=== PATIENT | male | born 1930 | race African-American/Black ===

== ENCOUNTER 2017-02-28 15:13 | Inpatient (IN) ==
[2017-02-28 16:04] LABS: Basophils % 0.2 % (0.0-0.8); Eosinophils % 0.1 % (0.00-10.9); Hematocrit 42.5 VOL% (42.0-52.0); Immature Granulocytes % 0.3 %; Immature Granulocytes Absolute 0.04 #; Lymphocytes # 1.1 10*3/uL (1.4-4.0); Lymphocytes % 7.9 % (21.2-54.2); Mean Corpuscular HGB Conc 30.6 GM/DL (32-36); Mean Corpuscular Hemoglobin 27 PG (27-34); Mean Corpuscular Volume 88.2 FL (87-102); Mean Platelet Volume 10.6 FL (9.6-12.0); Monocytes # 1.3 10*3/uL (0.11-0.8); Neutrophils # 11.9 10*3/uL (1.4-7.4); Neutrophils % 82.5 % (38.7-73.9); Platelet Count 332 T/CUMM (130-400); Red Blood Count 4.82 MC/CUMM (3.8-5.5); Red Cell Distribution Width 14.5 % (9.3-17.3); White Blood Count 14.4 T/CUMM (4-12)
[2017-02-28 16:19] LABS: Alanine Aminotransferase 19 U/L (16-61); Albumin 2.7 G/DL (3.4-5.0); Alkaline Phosphatase 74 U/L (45-117); Aspartate Amino Transferase 15 U/L (0-37); Blood Urea Nitrogen 17 MG/DL (7-18); Calcium 8.4 MG/DL (8.5-10.1); Glucose 172 MG/DL (74-106); Magnesium 2.2 MG/DL (1.8-2.4); Osmolality,Calculated 284.4 MOS/KG (273-304); Potassium 3.8 MMOL/L (3.5-5.1); Sodium 140 MMOL/L (136-145); Total Protein 7.2 G/DL (6.4-8.3); Troponin I Only < 0.015 NG/ML (0.00-0.045)
--- NOTE | 2017-02-28 16:42 | XRay Report ---
Portable chest Date: 02/28/2017 Clinical history: Shortness of breath Comparison: None Technique: Portable AP sitting chest Findings: The heart is small and compressed by the over expanded lungs. Pleural thickening at the lung apices with probable chronic scarring. Atelectasis at the lung bases. Calcified granulomata/nodes. Unremarkable mediastinum with degenerative changes. 9 mm osseous finding at the level of the left sixth/seventh rib laterally which has sclerotic margins and central radiolucency. 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 9 mm cystic finding with sclerotic margins at the level of the left sixth/seventh rib laterally. PROCEDURE INTERPRETED AT [facility] DEPARTMENT OF RADIOLOGY Final Report Signed by: Dr. Cira Menjivar
--- NOTE | 2017-02-28 17:17 | Emergency Department Note ---
Alysha Salinas Hilary, am scribing for, and in the presence of, Esvin Hong MD 15:59. Hal Salinas Phillip K, MD, personally performed the services described in this documentation, ascribed by Dora Encarnacion in my presence, and it is both accurate and complete 712 . Arrival - Arrival Chief Complaint: Non-Specific ED Nursing Triage Note: pt was sent from [place] for dehydration. weight loss Mode of Arrival: Stretcher Limitations: No Limitations Source: Patient, RN Notes Reviewed Time Seen by Provider: 02/28/17 15:33 - History of Present Illness HPI Narrative: Pt is a 86 y/o male transferred to the ED from the [place] for dehydration and weight loss. His C/O is an overall feeling of weakness onset about a week ago. Patient confirms he has lost about 10lbs in 3 weeks, cough with yellow discharge but denies N/V/D, fever or pain. Patient lives alone next to his sister and his brother lives about a mile away. He says he quit drinking in 2012 and smokes occasionally but "doesn't inhale". Pt has a PMHx of etoh abuse, substance abuse, COPD, and Dyslipidemia. No other complaints or problems stated in ED. Onset (ago): week(s) Allergies/Adverse Reactions: Allergies Allergy/AdvReac Type Severity Reaction Status Date / Time No Known Allergies Allergy Unverified 02/28/17 15:22 Review of System - Review of System 12 point system: reviewed and no additional remarkable complaints except as stated - Review of System Constitutional: Present: weakness, weight loss (lost 10lbs in 3 weeks). Absent : fever Respiratory: Present: cough (yellow discharge) Gastrointestinal: Absent: abdominal pain, nausea, vomiting, diarrhea Musculoskeletal: Absent: back pain, leg pain, neck pain Medical,Surgical,& Family Hx - Medical History Psychological: History of: Psychiatric Problems (etoh abuse,substance abuse) Endocrine: History of: Dyslipidemia Respiratory: History of: COPD - Social History Smoking Status: Smoker, status unknown Frequency of Alcohol Use: None Type of Drug Use: None Exam Vital Signs: Vital Signs Temperature 98.5 F 02/28/17 15:15 Pulse Rate 83 02/28/17 15:15 Respiratory Rate 18 02/28/17 15:31 Blood Pressure 124/68 02/28/17 15:15 O2 Sat by Pulse Oximetry 99 02/28/17 15:15 - General General appearance: alert, in no apparent distress - Head Head exam: Present: atraumatic, normocephalic - Eye Eye exam: Present: normal appearance, PERRL, EOMI - ENT ENT exam: Present: mucous membranes moist, TM's normal bilaterally. Absent: mucous membranes dry - Neck Neck exam: Present: full ROM, trachea midline. Absent: tenderness - Chest Chest inspection: Present: symmetric chest wall rise. Absent: tenderness - Respiratory Respiratory exam: Present: rales (left base) - Cardiovascular Cardiovascular exam: Present: regular rate (AFIB), irregular rhythm - Abdominal Exam Abdominal exam: Present: soft, normal bowel sounds. Absent: distention, tenderness - Extremities Exam Extremities exam: Present: full ROM. Absent: tenderness, pedal edema, calf tenderness - Back Exam Back exam: Present: full ROM. Absent: tenderness - Neurological Exam Neurological exam: Present: alert, oriented X3, CN II-XII intact. Absent: motor sensory deficit - Psychiatric Psychiatric exam: Present: normal affect, normal mood - Skin Skin exam: Present: warm, dry, intact, normal color. Absent: rash Results - Labs CBC & BMP: 02/28/17 15:25 02/28/17 15:25 Lab Results: I have reviewed the patients labs Labs: Laboratory Tests 02/28/17 02/28/17 15:25 15:25 WBC 14.4 H RBC 4.82 Hgb 13.0 L Hct 42.5 MCHC 30.6 L Neut % (Auto) 82.5 H Lymph % (Auto) 7.9 L Neut # (Auto) 11.9 H Lymph # (Auto) 1.1 L Rich # (Auto) 1.3 H Carbon Dioxide 33 H BUN/Creatinine Ratio 21.00 H Glucose 172 H Calcium 8.4 L Albumin 2.7 L Globulin 4.5 H Albumin/Globulin Ratio 0.6 L - EKG EKG results: interpreted by IJEOMA, sinus rhythm (old septal NE) - Diagnostic Findings Procedure: Chest x-ray: report reviewed by me (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 9mm cystic finding with sclerotic margins at the level of the left sixth/seventh rib laterally. ) Disposition Clinical Impression: Unexplained weight loss, Hypoalbuminemia, Failure to thrive Case discussed with: patient Disposition: Still a Patient Additional Instructions: Admit for further workup.
--- NOTE | 2017-02-28 17:31 | EKG Report ---
Stationary ECG Study [facility] ER Test Date: 02/28/2017 5:29:12 PM Pat Name: CRISTINA LOVELL Department: Room: Gender: M Cook Night: : 1930 Requested by: Esvin Elder Order Number: [id number] Reading MD: JOESPH GUAJARDO Intervals [place] Rate: 76 P: 85 DE: 199 QRS: -11 QRSD: 64 T: 84 QT: 369 QTc: 400 Interpretive Statements SINUS RHYTHM LEFT ATRIAL ENLARGEMENT PROBABLE SEPTAL MYOCARDIAL INFARCTION, OF INDETERMINATE AGE LATERAL MYOCARDIAL INFARCTION, OF INDETERMINATE AGE Electronically Signed On 02-28-17 17:41:05 CDT by OJESPH GUAJARDO [email or web address]
[2017-02-28 17:56] LABS: Apearance,Urine Slightly Hazy (Clear); Bilirubin,Urine Negative (Negative); Blood, Urine Negative (Negative); Glucose,Urine (UA) Negative (Negative); Ketones,Urine Negative (Negative); Mucus,Urine Moderate /LPF (Occasional); Nitrite,Urine Negative (Negative); Protein,Urine 30 MG/DL; RBC,Urine 1 /HPF (0-4); Squamous Epithelial Cell,Urine Occasional /HPF (0-10); Urine Color Yellow (Yellow); Urine Specific Gravity 1.019 (1.001-1.035); WBC,Urine 4 /HPF (0-6)
[2017-02-28] MEDS ORDERED: SODIUM CHLORIDE 0.9% 1,000 ML IV STA (18:32)
--- NOTE | 2017-02-28 18:40 | Hospitalist History & Physical ---
Assessment and Plan (1) Dysphagia Status: Acute Assessment and plan: consult GI Current Visit: Yes (2) Unexplained weight loss Status: Acute Assessment and plan: marijuana for appetite Current Visit: Yes (3) COPD (chronic obstructive pulmonary disease) Status: Acute Assessment and plan: chronic and stable does not want nicotine patch Current Visit: Yes (4) Leukocytosis Status: Acute Assessment and plan: ua negative, cxr no infiltrate, blood cx pending, repeat cbc in am Current Visit: Yes History of Present Illness Chief complaint: weight loss History of present illness: Mr. Damon is a 86 year old male with a history of no medical problems and sees the [place] doctor as needed presented to the emergency room with dizziness and lightheadedness and recent weight loss. Patient reports a 10 pound weight loss in the last 3 weeks. He says he just does not have an appetite. He also says he has difficulty swallowing pills and has to crush them. He has never had an EGD. I gave them him the option of a PEG tube but he declined at this time. He would prefer just getting a pill for appetite stimulation. Patient denies any nausea vomiting diarrhea or constipation issues. He used to smoke and drink but quit drinking and smokes occasionally. Patient's family is healthy. We discussed his CODE STATUS and initially he wanted to be a full code. When I explained to him what that would entail he requests DNR status. Allergies Allergy/AdvReac Type Severity Reaction Status Date / Time No Known Allergies Allergy Unverified 02/28/17 15:22 Medical,Surgical,& Family Hx - Medical History Psychological: History of: Psychiatric Problems (etoh abuse,substance abuse) Endocrine: History of: Dyslipidemia Respiratory: History of: COPD - Surgical History Abdominal Surgeries: Surgical HX of: Hernia Repair - Family History Family History: Reports;: Family Hypertension - Social History Smoking Status: Light tobacco smoker Frequency of Alcohol Use: None (Quit drinking years ago) Type of Drug Use: None Marital Status: Single Lives With:: Alone Functional capacity: independent ambulation - Constitutional Constitutional: Present: fatigue, weakness, weight loss. Absent: anorexia, frequent falls, headache(s) - EENT Eyes: Absent: blurry vision, diplopia Ears: Absent: decreased hearing, ear discharge Nose, mouth and throat: Absent: headache(s), sore throat - Cardiovascular Cardiovascular: Absent: chest pain at rest, dyspnea, dyspnea on exertion, edema - Respiratory Respiratory: Absent: cough, dyspnea, dyspnea on exertion, change in phlegm color - Gastrointestinal Gastrointestinal: Absent: abdominal pain, constipation, diarrhea, nausea, vomiting - Genitourinary Genitourinary: Absent: difficulty urinating, dysuria, urinary frequency - Musculoskeletal Musculoskeletal: Absent: arthralgias, back pain - Neurological Neurological: Absent: dizziness, headache(s), memory loss, syncope - Psychiatric Psychiatric: Present: depression. Absent: anxiety - Endocrine Endocrine: Present: cold intolerance, fatigue. Absent: heat intolerance - Hematologic/Lymphatic Hematologic/Lymphatic: Absent: easy bleeding, easy bruising Exam - Constitutional Vitals: Period Temp Pulse Resp BP Sys/Sharma Pulse Ox Last 24 Hr 98.5 F-98.5 F 83-83 18-18 124-124/68-68 99 General appearance: no acute distress, under weight - Head Head exam: Present: normal inspection, normocephalic - Eye Eye exam: Present: EOMI. Absent: scleral icterus Pupils: Present: STEPHY, normal accommodation - ENT ENT exam: Present: normal exam, normal external ear exam - Neck Neck exam: Absent: lymphadenopathy, thyromegaly - Respiratory Respiratory exam: Present: clear to auscultation bilaterally. Absent: rhonchi, wheezes - Cardiovascular Cardiovascular exam: Present: regular rate and rhythm. Absent: systolic murmur - GI/Abdominal GI/Abdominal exam: Present: normal bowel sounds, soft. Absent: tenderness - Extremities Exam Extremities exam: Present: normal inspection, normal capillary refill - Neurological Exam Neurological exam: Present: alert, oriented X3, CN II-XII intact, reflexes normal. Absent: motor sensory deficit - Psychiatric Psychiatric exam: Present: normal affect, normal mood - Skin Skin exam: Present: normal color, warm Results - Labs CBC & BMP: 02/28/17 15:25 02/28/17 15:25 Lab Results: I have reviewed the past 24 hour labs - EKG EKG shows: sinus rhythm - Diagnostic Findings Procedure: Chest x-ray: report reviewed by me (copd )
[2017-02-28] MEDS: DRONABINOL 2.5 MG CAPSULE PO SCH (22:03)
[2017-02-28] MEDS: ENOXAPARIN 40 MG/0.4 ML SYRINGE SUBCUT SCH ×2 (22:03→22:21)
[2017-03-01 05:43] LABS: Basophils % 0.2 % (0.0-0.8); Eosinophils # 0.1 10*3/uL (0.0-0.87); Eosinophils % 0.8 % (0.00-10.9); Hematocrit 36.5 VOL% (42.0-52.0); Hemoglobin 11.3 GM/DL (14.0-18.0); Immature Granulocytes % 0.4 %; Immature Granulocytes Absolute 0.04 #; Lymphocytes % 20.3 % (21.2-54.2); Mean Corpuscular Hemoglobin 27 PG (27-34); Mean Corpuscular Volume 86.9 FL (87-102); Mean Platelet Volume 10.7 FL (9.6-12.0); Monocytes # 1.1 10*3/uL (0.11-0.8); Monocytes % 11.1 % (1.7-12.7); Neutrophils # 6.6 10*3/uL (1.4-7.4); Neutrophils % 67.2 % (38.7-73.9); Platelet Count 294 T/CUMM (130-400); Red Cell Distribution Width 14.6 % (9.3-17.3); White Blood Count 9.8 T/CUMM (4-12)
[2017-03-01 06:20] LABS: Calcium 7.7 MG/DL (8.5-10.1); Potassium 4.1 MMOL/L (3.5-5.1); Risk Ratio 2.2; Thyroid Stimulating Hormone 0.991 uIU/ml (0.358-3.74); VLDL CHOLESTEROL 10.6 MG/DL
[2017-03-01] MEDS: DRONABINOL 2.5 MG CAPSULE PO SCH ×2 (09:15→21:09)
--- NOTE | 2017-03-01 10:00 | Gastrointestinal Consult Note ---
Assessment and Plan (1) Dysphagia Status: Acute Assessment and plan: 03/01-recent onset of difficulty swallowing pills, denied solids and liquids difficulty. 10 pound weight loss over the last several weeks with loss of appetite. No prior history of EGD in past. Plan for tentative EGD tomorrow to further evaluate. Plan an addendum to followed by Dr. Clemons. Current Visit: Yes (2) Failure to thrive Status: Acute Assessment and plan: 03/01-10 pound weight loss times several weeks. Plan for EGD tomorrow if patient remains stable. Plan an addendum to followed by Dr. Clemons Current Visit: Yes History of Present Illness Chief complaint: Weight loss, loss of appetite History of present illness: Mr. Damon is a 86 year old male who presented to the hospital following an appointment at the [place] clinic for complaints of increased weakness, fatigue and weight loss. Patient states that over the last 6 weeks he has had a onset of loss of appetite and has began to lose weight. He states that he has lost approximately 10 pounds in the last several weeks. He states that his loss of appetite was abrupt. He reports that he has no problems swallowing solids or liquids but he cannot swallow his pills and at times he has to crush them. Denies any pain with swallowing. Denies any melena or hematochezia. Denies any abdominal pain. Denies nausea, vomiting, chills, fever, or night sweats. States that he has a history of heavy alcohol use however he has not drank since 2012. States he does smoke occasionally. Denies any other substance abuse. His main complaint at this time is that he has no desire to eat, and he is increasingly weak and fatigued. He has no prior history of EGD in the past. His last colonoscopy was in 2012 with findings of diverticulitis and polyps ( tubular adenoma). Denies family history of colon cancer. BUN/creatinine ratio 27. He denies any NSAID use. Denies any GERD symptoms. Discussion was had with patient on admission regarding PEG placement but he declines this at present time. Requesting appetite stimulant to try first. Home Medications Medication Instructions Recorded Confirmed Type Polyvinyl Alcohol 1.4% Oph Mallika 1 drop BOTH EYES Q4HR PRN 03/01/17 03/01/17 History [Artificial Tears Oph Soln] Allergies Allergy/AdvReac Type Severity Reaction Status Date / Time No Known Allergies Allergy Unverified 02/28/17 15:22 Medical,Surgical,& Family Hx - Medical History Psychological: History of: Psychiatric Problems (etoh abuse,substance abuse) Endocrine: History of: Dyslipidemia Respiratory: History of: COPD Gastrointestinal: History of: GI Problems (pt has difficulty swallowing pills) - Surgical History Thoracic Surgeries: Patient denies;: Organ Transplant Abdominal Surgeries: Surgical HX of: Hernia Repair - Family History Family History: Reports;: Family Hypertension (sister , mother) - Social History Smoking Status: Light tobacco smoker Frequency of Alcohol Use: None Type of Drug Use: None 12 point system: reviewed and no additional remarkable complaints except as stated - Constitutional Constitutional: Present: as per HPI, fatigue, weight loss - EENT Eyes: Present: as per HPI Ears: Present: as per HPI Nose, mouth and throat: Present: as per HPI - Cardiovascular Cardiovascular: Present: as per HPI - Respiratory Respiratory: Present: as per HPI - Gastrointestinal Gastrointestinal: Present: as per HPI, dysphagia - Genitourinary Genitourinary: Present: as per HPI - Musculoskeletal Musculoskeletal: Present: as per HPI - Neurological Neurological: Present: as per HPI - Psychiatric Psychiatric: Present: as per HPI - Endocrine Endocrine: Present: as per HPI - Hematologic/Lymphatic Hematologic/Lymphatic: Present: as per HPI Exam - Constitutional Vitals: Period Temp Pulse Resp BP Sys/Sharma Pulse Ox Last 24 Hr 97.5 F-99.7 F 66-101 16-20 98-126/50-76 97-100 General appearance: no acute distress, under weight - Head Head exam: Present: normal inspection, normocephalic - Eye Eye exam: Present: other (Lids and conjunctivae). Absent: scleral icterus - ENT ENT exam: Present: normal exam, normal oropharynx - Neck Neck exam: Present: normal inspection - Respiratory Respiratory exam: Present: clear to auscultation bilaterally. Absent: rales, rhonchi, wheezes - Cardiovascular Cardiovascular exam: Present: regular rate and rhythm. Absent: diastolic murmur , JVD, systolic murmur - GI/Abdominal GI/Abdominal exam: Present: normal bowel sounds, soft. Absent: ascites, distended, mass, organomegaly, tenderness - Extremities Exam Extremities exam: Present: normal inspection, full ROM - Back Exam Back exam: Present: normal inspection - Neurological Exam Neurological exam: Present: alert, oriented X3 - Psychiatric Psychiatric exam: Present: normal affect, normal mood - Skin Skin exam: Present: normal color, warm, dry Results - Labs CBC & BMP: 03/01/17 04:43 03/01/17 04:43 Lab Results: I have reviewed the past 24 hour labs
[2017-03-01] MEDS: SODIUM CHLORIDE 0.9% 1,000 ML IV SCH (11:30)
--- NOTE | 2017-03-01 11:53 | Hospitalist Progress Note ---
Assessment and Plan (1) Dysphagia Status: Acute Assessment and plan: EGD in a.m. Current Visit: Yes (2) Unexplained weight loss Status: Acute Assessment and plan: marijuana for appetite but has nutrition to assist severely malnourished. Current Visit: Yes (3) COPD (chronic obstructive pulmonary disease) Status: Acute Assessment and plan: chronic and stable does not want nicotine patch Current Visit: Yes (4) Leukocytosis Status: Acute Assessment and plan: ua negative, cxr no infiltrate, blood cx negative, repeat cbc normal without intervention Current Visit: Yes Hospitalist: Subjective Interval history: Patient only wants certain things to be done. He is very particular. Hopefully he will allow us to EGD tomorrow to look at his difficulty swallowing. We have started him on Marinol for appetite. He has eaten a little bit more today. I will have nutrition work with him. I told him that he probably would go home tomorrow as most of what we are doing can be done from home. Exam - Constitutional Vitals: Period Temp Pulse Resp BP Sys/Sharma Pulse Ox Last 24 Hr 97.5 F-99.7 F 41-101 16-20 98-126/47-76 97-100 Exam: Heart Rate-[RRR] Lungs-[CTAB but diminished] GI-[+bs soft, severe malnourished] Ext-[no edema] Neuro [Motor 5/5], [alert and oriented times 3] psych [normal mood and affect] General [no acute distress] Results - Labs CBC & BMP: 03/01/17 04:43 03/01/17 04:43 Lab Results: I have reviewed the past 24 hour labs
[2017-03-02] MEDS: SODIUM CHLORIDE 0.9% 1,000 ML IV SCH (00:48)
--- NOTE | 2017-03-02 08:56 | Discharge Summary ---
<Galo Jones - Last Filed: 03/02/17 08:43> Hospital Course - Hospital Course Hospital Course: This is an 86 year-old male with no significant medical problems who was admitted through the ED on 02/28/2017 with dizziness, lightheadedness and recent weight loss. He was found to have disphagia to pills and leukocytosis with a white count of 14.4. Blood cultures were negative. GI was consulted and recommended a FOBT. Stool returned hemoccult negative thereby ruling an EGD unnecessary due to high probability of low yield to establish etiology of his weight loss. The patient only received NS and marinol 2.5 mg PO BID while hospitalized. He has stabilized with no new complaints and is ready for discharge today. His white count has normalized to 9.8, creatinine decreased slightly. Will d/c fluids and discharge the patient with appropriate follow-up instructions as outlined in the discharge orders. - Time spent with patient Time with patient DS: Greater than 30 minutes Discharge Plan - Discharge Data Disposition: Home Health Service - Discharge Medications New Megestrol Liquid [Megace Liquid] 400 mg PO BID #60 udcup Continue Polyvinyl Alcohol 1.4% Oph Mallika [Artificial Tears Oph Soln] 1 drop BOTH EYES Q4HR PRN PRN Reason: Dry Eyes - Follow Up or Referral Follow Up: pmd, [Other] - 2 Weeks - Forms/Instructions Exam - Constitutional Vitals: Period Temp Pulse Resp BP Sys/Sharma Pulse Ox Last 24 Hr 97.7 F-98.5 F 41-76 16-24 94-121/45-65 97-100 Discharge Results Procedures and tests throughout hospitalization: Pending Orders 02/28/17 18:17 Blood Culture Stat 03/01/17 21:58 Occult Blood, Stool Routine Labs on day of discharge: Labs from last 24 hours 03/02/17 08:51 POC Glucose 89 Preliminary micro results at discharge 02/28/17 18:17 Blood Culture - Preliminary Blood No growth at 1 day 02/28/17 18:17 Blood Culture - Preliminary Blood No growth at 1 day DS: Provider Date of admission: 02/28/17 17:29 Primary care physician: . No PCP Attending physician on admission: Rosalie Adan MD Consults: 02/28/17 17:49 Consult to Pharmacy [CONS] Routine Reason for Pharmacy Consult: Adjust Meds Renal Funct 02/28/17 19:28 Consult to Physician [CONS] Routine Comment: dysphagia and extreme weight loss Consulting Provider: Carlo Clemons When should Consulting Provider be notified: Now Person Notified: Gertrudis Date Notified: 03/01/17 Time Notified: 14:01 02/28/17 20:30 Consult to Dietitian [CONS] Routine Reason for Dietitian: Supplements and/or Snacks Diet Recommendations Discharging clinician: Galo WALL Expected date of discharge: 03/02/17 <Rosalie Adan - Last Filed: 03/02/17 10:32> Hospital Course - Hospital Course Hospital Course: Patient seen and examined. Hospital course reviewed and edited. Patient is very stubborn and has refused all recommendations from both GI and myself. Patient will be discharged home follow-up with his primary doctor. His appetite is improved on Marinol but he will be discharged on megace. - Time spent with patient Time with patient DS: Less than 30 minutes (25 min) Diagnosis - Discharge Diagnosis (1) Dysphagia Status: Acute (2) Unexplained weight loss Status: Acute (3) COPD (chronic obstructive pulmonary disease) Status: Acute (4) Leukocytosis Status: Acute Discharge Plan - Discharge Data Condition at Discharge: Stable Discharge Diet: regular diet Activity: resume usual activities as tolerated Hygiene: no restrictions Weight Bearing at Discharge: full weight bearing Exam - Constitutional General appearance: no acute distress, under weight - Respiratory Respiratory exam: Present: clear to auscultation bilaterally. Absent: rhonchi, wheezes - Cardiovascular Cardiovascular exam: Present: regular rate and rhythm. Absent: systolic murmur - GI/Abdominal GI/Abdominal exam: Present: normal bowel sounds, soft. Absent: tenderness
[2017-03-02] MEDS ORDERED: GLUCAGON 1 MG VIAL IM PRN (09:04)
[2017-03-02] MEDS ORDERED: DEXTROSE 50% 25 GM/50 ML VIAL IV PRN (09:04)
[2017-03-02] MEDS: DRONABINOL 2.5 MG CAPSULE PO SCH (09:23)
[2017-03-02 10:59] VITALS: BP 114/65
--- NOTE | 2017-03-03 15:01 | Physician Query Form ---
CLICK EDIT DOCUMENT TO SELECT QUERY ANSWER --> OK --> SIGN Pao Moore RN Clinical Dye Padder Operator W) [phone] (f) [phone] [email or web address] PROVIDERS: Make your selection(s) from the choices in EACH section by typing an "x" and enter comments in the comment section. Please use your independent medical judgment in providing your response. This request does not imply that any particular answer is desired or expected. 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 marijuana for appetite but has nutrition to assist severely malnourished Based on the above, which following choice most accurately represents the patient's nutritional status? (x ) Malnutrition ( ) mild ( ) moderate (x ) severe ( ) Protein calorie malnutrition ( ) mild ( ) moderate ( ) severe ( ) Emaciation due to malnutrition ( ) Nutritional marasmus ( ) Cachexia ( ) Underweight ( ) No nutritional deficiency ( ) Other, please specify: ( ) Clinically unable to determine Mild Malnutrition (BMI < 18.5, % Normal Body Weight 85-95%) Moderate Malnutrition (BMI < 17, % Normal Body Weight 75-85%) Severe Malnutrition (BMI < 16, % Normal Body Weight < 75%) Source: Janeth COMMENTS: Use of terms such as suspected, likely, or probable (associated with a specific diagnosis that is being evaluated, monitored, or treated as if it exists) are acceptable and can be restated in the discharge summary if not ruled out. MTDD
== END 2017-03-02 12:30 | disposition home health service (06) | DRG 391 ==
LOC: EDUNIT# → EDBD → N.ED 15:13 → N.EDINP 17:29 → N.5E 21:15
PROVIDERS: ADMIT Internal Medicine; ATTEND Internal Medicine